=== PATIENT | male | born 1990 | race Caucasian/White ===

== ENCOUNTER 2018-02-17 13:22 | Emergency (ER) | payer OTHER ==
[2018-02-17] MEDS ORDERED: KETOROLAC 30 MG/ML VIAL (J1885) As Ordered ×2 (14:23)
[2018-02-17] MEDS: KETOROLAC 60 MG/2 ML VIAL (J1885) IM (14:33)
[2018-02-17 15:01] LABS: D-DIMER QUANT < 270 ng/ml (<500)
[2018-02-17] MEDS ORDERED: KETOROLAC 60 MG/2 ML VIAL (J1885) IM (15:15)
== END 2018-02-17 15:15 | disposition home or self-care (01) ==
LOC: M ED 13:22
DX: R07.89 Other chest pain (principal)
CPT/HCPCS: J1885